=== PATIENT | male | born 1975 | race Caucasian/White ===

== ENCOUNTER 2022-04-01 21:43 | Emergency (ER) | payer OTHER ==
[2022-04-02] MEDS ORDERED: Acetaminophen/oxyCODONE 325-10 MG Tab PO ONE (00:19)
== END 2022-04-02 00:25 | disposition home or self-care (01) ==
LOC: MW.ED 21:43
DX: S02.831A Fracture of medial orbital wall, right side, initial encounter for closed fracture (principal); S02.832A Fracture of medial orbital wall, left side, initial encounter for closed fracture; Z79.899 Other long term (current) drug therapy; W22.8XXA Striking against or struck by other objects, initial encounter; Y99.0 Civilian activity done for income or pay
CPT/HCPCS: 70480; 70486; 99283; A9270

== ENCOUNTER 2022-07-03 17:21 | Emergency (ER) | payer OTHER | END 2022-07-03 18:28 | disposition left against medical advice (07) | LOC: MW.ED 17:21 | DX: Z53.21 Procedure and treatment not carried out due to patient leaving prior to being seen by health care provider (principal) ==